=== PATIENT | male | born 1950 | race Caucasian/White ===

== ENCOUNTER → 2023-12-24 13:50 | Outpatient (REF) | payer MEDICARE, SELFPAY | LOC: RCS 13:50 | PROVIDERS: ATTENDING PHYSICIAN Internal Medicine Cardiovascular Disease; FAMILY PHYSICIAN Internal Medicine Geriatric Medicine | DX: I25.10 Atherosclerotic heart disease of native coronary artery without angina pectoris (principal) | CPT/HCPCS: 93017; 93350 ==

== ENCOUNTER → 2024-01-02 16:01 | Outpatient (REF) | payer MEDICARE, SELFPAY | LOC: RCS 16:01 | PROVIDERS: ATTENDING PHYSICIAN Internal Medicine Cardiovascular Disease; FAMILY PHYSICIAN Internal Medicine Geriatric Medicine | DX: I25.10 Atherosclerotic heart disease of native coronary artery without angina pectoris (principal) | CPT/HCPCS: 93306 ==

== ENCOUNTER → 2024-04-16 16:10 | Outpatient (REF) | payer MEDICARE, BC, SELFPAY | LOC: RAD 16:10 | PROVIDERS: ATTENDING PHYSICIAN Internal Medicine Geriatric Medicine | DX: C49.22 Malignant neoplasm of connective and soft tissue of left lower limb, including hip (principal); R55 Syncope and collapse | CPT/HCPCS: 70450 ==